=== PATIENT | female | born 1990 ===

== ENCOUNTER 2019-01-19 18:48 | Inpatient (IN) | payer MEDICAID ==
[2019-01-19 20:52] LABS: BASO % 0.6 % (0.0-2.0); EOS # 0.4 K/uL (0.0-0.7); EOS % 6.1 % (0.0-4.0); HEMOGLOBIN 13.7 g/dL (11.0-16.0); LYMPH # 1.9 K/uL (1.0-4.3); LYMPH % 28.1 % (20.0-40.0); MEAN CORPUSCULAR HEMOGLOBIN 31.2 pg (27.0-31.0); MEAN CORPUSCULAR HGB CONC 33.5 g/dL (33.0-37.0); MEAN PLATELET VOLUME 7.4 fL (7.2-11.7); MONO # 0.5 K/uL (0.0-0.8); MONO % 7.9 % (0.0-10.0); NEUT # 3.9 K/uL (1.8-7.0); NEUT % 57.3 % (50.0-75.0); RBC 4.4 Mil/uL (3.80-5.20); RED CELL DISTRIBUTION WIDTH 14.5 % (11.5-14.5); WHITE BLOOD COUNT 6.8 K/uL (4.8-10.8)
[2019-01-19 20:57] LABS: SQUAMOUS EPITHIAL 17 /hpf (0-5); URINE AMORPHOUS SEDIMENT FEW /ul (<OCC); URINE BACTERIA MANY (<OCC); URINE BILIRUBIN NEGATIVE (NEGATIVE); URINE BLOOD NEGATIVE (NEGATIVE); URINE CALCIUM OXALATE CRYSTALS MOD /hpf (<OCC); URINE CLARITY Hazy (Clear); URINE COLOR Amber (YELLOW); URINE GLUCOSE (UA) NORMAL (Normal); URINE LEUKOCYTE ESTERASE NEG Leu/uL (Negative); URINE PROTEIN 2+ mg/dL (NEGATIVE); URINE UROBILINOGEN NORMAL mg/dL (0.2-1.0)
[2019-01-19 21:03] LABS: ALB/GLOB RATIO 1.3 (1.0-2.1); ALBUMIN 4.4 g/dL (3.5-5.0); ALT/SGPT 14 U/L (9-52); AST/SGOT 23 U/L (14-36); BLOOD UREA NITROGEN 8 mg/dL (7-17); CALCIUM 9.4 mg/dl (8.6-10.4); GFR NON-AFRICAN AMERICAN > 60
[2019-01-19 21:07] LABS: BENZODIAZEPINES, UR NEGATIVE (NEGATIVE); PHENCYCLIDINE, UR NEGATIVE (NEGATIVE)
[2019-01-19 21:10] LABS: BARBITURATES, UR POSITIVE (NEGATIVE); OPIATES, UR POSITIVE (NEGATIVE)
--- NOTE | 2019-01-19 21:51 | C.PDOC ---
History Of Present Illness 28 year old female presents to the ED requesting detox for heroin abuse. Patient reports she snorts 30 bags of heroin an day plus cocaine and barbiturates. Patient denies SI/HI, hallucinations, injury, fall, trauma. Time Seen by Provider: 01/19/19 19:44 Chief Complaint (Nursing): Substance Abuse History Per: Patient History/Exam Limitations: intoxication Onset/Duration Of Symptoms: Days Current Symptoms Are (Timing): Still Present Suicide/Self Injury Attempted (Context): None Modifying Factor(s): Narcotics, Cocaine Associated Symptoms: denies: Depression, Suicidal Thoughts, Suicidal Plan Recent travel outside of the [place]: No Additional History Per: Patient Past Medical History Reviewed: Historical Data, Nursing Documentation, Vital Signs Vital Signs: Last Vital Signs Temp 98.5 F 01/19/19 18:57 Pulse 97 H 01/19/19 18:57 Resp 16 01/19/19 18:57 BP 125/83 01/19/19 18:57 Pulse Ox 100 01/19/19 18:57 - Medical History PMH: No Chronic Diseases Surgical History: No Surg Hx Family History: States: Unknown Family Hx - Social History Hx Alcohol Use: No Hx Substance Use: Yes (last use 899) - Immunization History Hx Tetanus Toxoid Vaccination: No Hx Influenza Vaccination: No Hx Pneumococcal Vaccination: No Review Of Systems Constitutional: Negative for: Fever, Chills Cardiovascular: Negative for: Chest Pain Respiratory: Negative for: Shortness of Breath Gastrointestinal: Negative for: Nausea, Vomiting, Abdominal Pain Skin: Negative for: Rash Psych: Negative for: Depression, Suicidal ideation Physical Exam - Physical Exam Appears: Non-toxic, No Acute Distress Skin: Normal Color, Warm, Dry, Other (no track ballesteros) Head: Atraumatic, Normacephalic Eye(s): bilateral: Normal Inspection (colored contacts) Neck: Normal ROM, Supple Chest: Symmetrical Cardiovascular: Rhythm Regular Respiratory: Normal Breath Sounds, No Rales, No Rhonchi, No Wheezing Gastrointestinal/Abdominal: Soft, No Tenderness, No Guarding, No Rebound Extremity: Normal ROM, No Tenderness, No Swelling Neurological/Psych: Oriented x3, Normal Speech, Normal Cognition Gait: Steady ED Course And Treatment - Laboratory Results Result Diagrams: 01/19/19 20:48 01/19/19 20:48 Lab Interpretation: Abnormal (tox + opiates, swapnil, cocaine, ua neg.) Urine POC: Negative O2 Sat by Pulse Oximetry: 100 (ON RA) Pulse Ox Interpretation: Normal Reevaluation Time: 21:51 Reassessment Condition: Unchanged Medical Decision Making Medical Decision Making: polysubstance abuse including heroine 30 bags/day, cocaine and barbiturates Disposition Doctor Will See Patient In The: Hospital Counseled Patient/Family Regarding: Studies Performed, Diagnosis - Disposition Disposition: HOSPITALIZED Disposition Time: 21:51 Condition: GOOD - Clinical Impression Clinical Impression: Polysubstance (including opioids) dependence with physiol dependence - Scribe Statement The provider has reviewed the documentation as recorded by the Scribe Michael Ellis All medical record entries made by the Scribe were at my direction and personally dictated by me. I have reviewed the chart and agree that the record accurately reflects my personal performance of the history, physical exam, medical decision making, and the department course for this patient. I have also personally directed, reviewed, and agree with the discharge instructions and disposition.
[2019-01-19] MEDS ORDERED: Aluminum Hydroxide/Magnesium Hydroxide Susp (30 mL) PO PRN (22:41)
--- NOTE | 2019-01-20 10:58 | PCM.PSYCH ---
Initial Psychiatric Evaluation - Initial Psychiatric Evaluation Type of Admission: Voluntary Legal Status: Capacity Chief Complaint (in patient's own words): "I am withdrawing History of Present Illness and Precipitating Events: The patient was seen, chart reviewed and case discussed. This is a 28-year-old female, single with no child, lives with her mother and Garnica, unemployed. The patient admits to using 30-50 bags of heroin intranasally for the past 3 years. She overdosed 6 or 7 times and last one was a few months ago. She started using oxycodone first but switched to heroin. She is also using cocaine intranasally for the past 4 years and smokes cigarettes 1 package per day. She denies all other drug use and alcohol use. This is her second detox and she has not been in rehab or never used MAT in the past. Her longest sobriety was 6 months She then admitted to using Xanax on and off and in fact she had a seizure last year. She supports her habit by illegal behaviors on the streets. Past psychiatric: She was given Seroquel and Klonopin for depression and anxiety. She currently feels very depressed but not suicidal. No psychosis or gabriela but she has lots of anxiety and depressive symptoms. Medical history: Seizures towards the end of 2018 Family psychiatric: Denies Current Medications: Active Medications Generic Name Dose Route Start Last Admin Trade Name Freq PRN Reason Stop Dose Admin Acetaminophen 650 mg 01/19/19 22:48 Tylenol 325mg Tab PO Q6 PRN Pain, moderate (4-7) Al Hydrox/Mg Hydrox/Simethicone 30 ml 01/19/19 22:41 Maalox 30 Ml PO TID PRN Indigestion / Heartburn Clonidine HCl 0.1 mg 01/19/19 22:41 Catapres PO Q4 PRN COWS Score More or Equal to 5 Gabapentin 300 mg 01/19/19 22:45 01/20/19 09:52 Neurontin PO 300 mg BID PROSPER Administration Hydroxyzine HCl 50 mg 01/19/19 22:39 Atarax PO Q6H PRN Anxiety Influenza Virus Vaccine 60 mcg 01/22/19 10:00 Flucelvax Quad [id number] Syr IM 01/22/19 10:01 .ONCE ONE Loperamide HCl 2 mg 01/19/19 22:41 Imodium PO Q8 PRN Diarrhea Ondansetron HCl 4 mg 01/19/19 22:41 Zofran Tab PO Q8 PRN Nausea/Vomiting Pneumococcal Polyvalent Vaccine 0.5 ml 01/22/19 10:00 Pneumovax 23 Vaccine IM 01/22/19 10:01 .ONCE ONE Quetiapine Fumarate 100 mg 01/19/19 22:45 01/19/19 23:18 Seroquel PO 100 mg HS PROSPER Administration Past Psychiatric History - Past Psychiatric History Previous Treatment History: Intensive Outpatient Pertinent Medical Hx (Current Medical&Sleep Prob, Allergies): Allergies Allergy/AdvReac Type Severity Reaction Status Date / Time ibuprofen Allergy Verified 01/19/19 18:57 Penicillins Allergy Verified 01/19/19 18:57 No Known Home Med 01/19/19 Review of Systems - Psychiatric Psychiatric: Abnormal Sleep Pattern, Anhedonia, Anxiety, Behavioral Changes, Change in Appetite, Depression, Difficulty Concentrating. absent: Homicidal Ideation, Suicidal Ideation Mental Status Examination - Personal Presentation Personal Presentation: Looks stated age - Affect Affect: Constricted - Motor Activity Motor Activity: Calm - Reliability in Providing Information Reliability in Providing Information: Good - Speech Speech: Organized - Mood Mood: Depressed, Anxious - Formal Thought Process Formal Thought Process: No Impairment - Cognitive Functions Orientation: Person, Place, Situation, Time Sensorium: Alert Attention/Concentration: Easily distracted Estimate of Intelligence: Average Judgement: Intact, as evidence by: Insight regarding need for hospitalization Memory: Recent intact, as evidence by: Ability to recall events of the day, Remote impaired as evidenced by: Inability to recall sig life events - Risk Risk: Withdrawal, Diminished functioning - Strength & Assets Inventory Strength & Assets Inventory: Cooperative - Limitations Limitations: Other DSM 5 DX - DSM 5 DSM 5 Diagnosis: Opioid withdrawal Opioid use d/o - severe Cocaine use d/o - severe Sedative, 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 Attend groups and activities Supportive therapy and psychoeducation NM for abstinence CBT for relapse prevention Encourage MAT Refer to rehab or IOP, and self-help groups Teach healthy lifestyle methods, i.e. diet, exercise, meditation Smoking cessation with NM Nicotine patch if needed 34 min Projected ELOS: 5 days Prognosis: good w treatment - Smoking Cessation Smoking Cessation Initiated: Yes
--- NOTE | 2019-01-20 17:36 | PCM.BM ---
<Sailaja Benoit - Last Filed: 01/20/19 17:35> Treatment Plan Problems - Problems identified on initial assessmt Defensive Coping Date Initiated: 01/20/19 Time Initiated: 17:35 Assessment reference: NA Status: Active Denial Date Initiated: 01/20/19 Time Initiated: 17:35 Assessment reference: NA Status: Active Chronic Low Self Esteem Date Initiated: 01/20/19 Time Initiated: 17:36 Assessment reference: NA Status: Active Treatment assets and liabiliti Patient Assests: ADL independent, physically healthy, negotiates basic needs, cognitively intact Patient Liabilities: substance abuse - Milieu Protocol Maintain good personal hygiene: daily Encourage regular showers, daily Remind patient to perform daily oral care, daily Assist patient to perform ADL's Conduct patient checks and document Observation sheet: Q15 minutes Maintain personal safety: every shift Educate patient to report safety concerns to staff, every shift Monitor environment for contraband/sharps Medication safety: Monitor for expected outcome, potential side effects: every shift, Assess barriers to learning: every shift, Assess readiness for medication education: every shift Milieu Narrative: Taper with methadone Monitor benzo withdrawal Gabapentin for augmentation Lexapro and remeron for depression, anxiety and insomnia As needed medications All risks, benefits and alternatives of the meds discussed, and the pt agreed and understood. Attend groups and activities Supportive therapy and psychoeducation NC for abstinence CBT for relapse prevention Encourage MAT Refer to rehab or IOP, and self-help groups Teach healthy lifestyle methods, i.e. diet, exercise, meditation Smoking cessation with NC Nicotine patch if needed 34 min Discharge/Continuing Care - Treatment Team Participation Patient/Family/SO Statement: Taper with methadone Monitor benzo withdrawal Gabapentin for augmentation Lexapro and remeron for depression, anxiety and insomnia As needed medications All risks, benefits and alternatives of the meds discussed, and the pt agreed and understood. Attend groups and activities Supportive therapy and psychoeducation NC for abstinence CBT for relapse prevention Encourage MAT Refer to rehab or IOP, and self-help groups Teach healthy lifestyle methods, i.e. diet, exercise, meditation Smoking cessation with NC Nicotine patch if needed 34 min <Mariela Saavedra - Last Filed: 01/21/19 13:17> - Diagnosis (1) Opioid use disorder, severe, dependence Status: Acute Interventions: 01/21/19 13:17 * Assess 7x/week regarding severity of withdrawal * Educate regarding risks, benefits, side effects and alternatives of medications * Use Motivational Interviewing for abstinence * Use CBT for relapse prevention * Medication management for withdrawal symptoms * Encourage medication assisted treatment * <Irasema Ramsey - Last Filed: 01/23/19 12:19> Family Contact Family contact name: mom Family contacted how many times per week?: 2 - Goals for Treatment Patient goals for treatment: "I wanna go on a methadone program after this." Discharge/Continuing Care - Education Needs Education Needs: Family Diagnosis/Disease Process, Family Community resources, Patient Medication, Patient Diagnosis/Disease Process, Patient Coping Skills, Patient Anger Management skills, Patient Placement options, Patient Community resources - Discharge Discharge Criteria: No longer exhibiting s/s of withdrawal, Reduction of target symptoms Discharge to:: Home, With Family - Treatment Team Participation Discussed with Family/SO: No Was Patient/Family/SO present at Treatment Team Meeting: Yes
--- NOTE | 2019-01-21 13:21 | PCM.PYCHPN ---
Psychiatric Progress Note - Psychiatric Progress Note Patient seen today, length of contact: 20 min Patient Chief Complaint: "I am still sick, withdrawing Problems Identified/Issues Discussed: The pt is seen, chart reviewed, case discussed with staff. Support and psychoeducation given Pt is improving slowly and needs more time, still has ongoing symptoms. Additional methaodne given Clonisine 0.1 TID started prn's added She will also get Abx for UTI No SEs from medications, risks discussed. After care discussed Medication Change: Yes (detox changes daily) Medical Record Reviewed: Yes Mental Status Examination - Cognitive Function Orientation: Person, Place, Situation, Time Memory: Intact Attention: Poor Concentration: Poor Association: WNL Fund of Knowledge: WNL - Mood Mood: Depressed, Anxious - Affect Affect: Constricted - Speech Speech: Appropriate - Formal Thought Process Formal Thought Process: No Impairment - Suicidal Ideation Suicidal Ideation: No - Homicidal Ideation Homicidal Ideation: No Goal/Treatment Plan - Goal/Treatment Plan Need for Continued Stay: Discharge may exacerbated symptoms, Severe functional impairment Progress Toward Problem(s) and Goals/Treatment Plan: Taper with methadone, additional dose given Monitor benzo withdrawal Gabapentin for augmentation Lexapro and remeron for depression, anxiety and insomnia As needed medications All risks, benefits and alternatives of the meds discussed, and the pt agreed and understood. Attend groups and activities Supportive therapy and psychoeducation PR for abstinence CBT for relapse prevention Encourage MAT Refer to rehab or IOP, and self-help groups Teach healthy lifestyle methods, i.e. diet, exercise, meditation Smoking cessation with PR Nicotine patch if needed
--- NOTE | 2019-01-22 09:56 | PCM.PYCHPN ---
Psychiatric Progress Note - Psychiatric Progress Note Patient seen today, length of contact: 18 min Patient Chief Complaint: "I am not well even though I took 2 extras" Medication Change: Yes (detox changes daily) Medical Record Reviewed: Yes Mental Status Examination - Cognitive Function Orientation: Person, Place, Situation, Time Memory: Intact Attention: Poor Concentration: Poor Association: WNL Fund of Knowledge: WNL - Mood Mood: Depressed, Anxious - Affect Affect: Constricted - Speech Speech: Appropriate - Formal Thought Process Formal Thought Process: No Impairment - Suicidal Ideation Suicidal Ideation: No - Homicidal Ideation Homicidal Ideation: No Goal/Treatment Plan - Goal/Treatment Plan Need for Continued Stay: Discharge may exacerbated symptoms, Severe functional impairment Progress Toward Problem(s) and Goals/Treatment Plan: Taper with methadone, additional dose given Monitor benzo withdrawal Gabapentin for augmentation Lexapro and remeron for depression, anxiety and insomnia As needed medications All risks, benefits and alternatives of the meds discussed, and the pt agreed and understood. Attend groups and activities Supportive therapy and psychoeducation AL for abstinence CBT for relapse prevention Encourage MAT Refer to rehab or IOP, and self-help groups Teach healthy lifestyle methods, i.e. diet, exercise, meditation Smoking cessation with AL Nicotine patch if needed Estimated Date of D/C: 01/26/19
[2019-01-22] MEDS ORDERED: Pneumococcal 23-Valent Vaccine IM ONE (10:00)
[2019-01-22] MEDS ORDERED: Influenza Vaccine 60 mcg/0.5 mL SYR (4YR UP) IM ONE (10:00)
[2019-01-23 08:56] VITALS: RESP 18
--- NOTE | 2019-01-24 08:37 | PCM.PYCHDC ---
Mental Status Examination - Mental Status Examination Orientation: Person Discharge Summary - Discharge Note Consultations:: List each consultation separately and include: 1. Reason for request. 2. Findings. 3. Follow-up Summary of Hospital Course include:: 1. Description of specific treatment plan utilized for patients during their course of treatmen. 2. Summarize the time- course for resolution of acute symptoms and/or regressed behaviors. 3. Describe issues identified and worked on during hospitalization. 4. Describe medication utilized. 5. Describe medical problems identified and treated. 6. Reassessment of suicide risk Summary of Hospital Course: The patient was seen, chart reviewed and case discussed. This is a 28-year-old female, single with no child, lives with her mother and [place], unemployed. The patient admits to using 30-50 bags of heroin intranasally for the past 3 years. She overdosed 6 or 7 times and last one was a few months ago. She started using oxycodone first but switched to heroin. She is also using cocaine intranasally for the past 4 years and smokes cigarettes 1 package per day. She denies all other drug use and alcohol use. This is her second detox and she has not been in rehab or never used MAT in the past. Her longest sobriety was 6 months She then admitted to using Xanax on and off and in fact she had a seizure last year. She supports her habit by illegal behaviors on the streets. Past psychiatric: She was given Seroquel and Klonopin for depression and anxiety. She currently feels very depressed but not suicidal. No psychosis or gabriela but she has lots of anxiety and depressive symptoms. Medical history: Seizures towards the end of 2017 Family psychiatric: Denies She was thinking about rehab but whenthe wdw and cravings hit hard, she changed her mind to [facility] yesterday. She left a day early to be there tomorrow at 5 am (at [facility]) - Diagnosis (1) Opioid use disorder, severe, dependence Current Visit: Yes Status: Acute - Final Diagnosis (DSM 5) Condition upon Discharge: GOOD Disposition: HOME/ ROUTINE Follow-up Treatment Plan: Taper with methadone, additional dose given Monitor benzo withdrawal Gabapentin for augmentation Lexapro and remeron for depression, anxiety and insomnia As needed medications All risks, benefits and alternatives of the meds discussed, and the pt agreed and understood. Attend groups and activities Supportive therapy and psychoeducation AK for abstinence CBT for relapse prevention Encourage MAT Refer to rehab or IOP, and self-help groups Teach healthy lifestyle methods, i.e. diet, exercise, meditation Smoking cessation with AK Nicotine patch if needed Prescriptions/Medication Reconciliation: cloNIDine [Catapres] 0.1 mg PO BID #10 tab Escitalopram [Lexapro] 10 mg PO DAILY #30 tab Gabapentin [Neurontin] 300 mg PO TID #90 cap hydrOXYzine HCl [Atarax] 50 mg PO BID PRN #60 tab PRN Reason: Anxiety Mirtazapine [Remeron] 15 mg PO HS #30 tab Nitrofurantoin Macrocrystals [Macrobid] 100 mg PO Q12H #7 cap QUEtiapine [SEROquel] 200 mg PO HS #30 tab
[2019-01-24] MEDS ORDERED: Influenza Vaccine 60 mcg/0.5 mL SYR (4YR UP) IM ONE (09:44)
[2019-01-24 10:24] VITALS: BP 99/56; PULSE 80; TEMP 97.3; O2SAT 100
== END 2019-01-24 13:10 | disposition home or self-care (01) | DRG 744 ==
LOC: C.ER 18:48 → C.7D 21:52
PROVIDERS: ADMIT Psychiatry & Neurology Psychiatry; ATTEND Psychiatry & Neurology Psychiatry
PROC: GZHZZZZ Group Psychotherapy (ICD-10-PCS; principal; 2019-01-19)
PROC: GZ56ZZZ Individual Psychotherapy, Supportive (ICD-10-PCS; 2019-01-19)
DX: F11.23 Opioid dependence with withdrawal (principal); N39.0 Urinary tract infection, site not specified; F13.239 Sedative, hypnotic or anxiolytic dependence with withdrawal, unspecified; F32.9 Major depressive disorder, single episode, unspecified; F14.10 Cocaine abuse, uncomplicated; F41.9 Anxiety disorder, unspecified; G47.00 Insomnia, unspecified; F17.210 Nicotine dependence, cigarettes, uncomplicated